=== PATIENT | male | born 1960 | race Caucasian/White ===

== ENCOUNTER → 2016-12-23 | Day surgery (SDC) | payer BC ==
[~2016-12-23] VITALS: Ht 182.9 cm; Wt 125.0 kg
[2016-12-23] VITALS (9 sets, daily range): BP systolic 133–176; BP diastolic 88–145; PULSE 82–128; TEMP 36.5; O2SAT 96–98; Ht 182.9 cm; Wt 125.0 kg
[~2016-12-23] MED LIST: ALLO300T2 PO; AMLO-110 PO; FENTANYL CITRATE INJ 50 MCG/1 ML 2 ML VIAL ONE; GLYCOPYRROLATE INJ 0.2 MG/ML VIAL ONE; METO25TA3 PO; MIDAZOLAM HCL 1 MG/ML 2ML VIAL ONE; WARF5TAB7 PO
--- NOTE | 2016-12-23 08:09 | Procedure Note ---
Pre-Mod Sedation Assessment General Date of Moderate Sedation: Dec 23, 2016. Vital Signs: Vital Signs Past 12 Hours Date Time Temp Pulse Resp B/P Pulse Ox O2 Delivery O2 Flow Rate FiO2 12/23/16 07:24 36.5 99 16 168/110 98 Room Air Review Cardiovascular: no JVD, no murmur, normal peripheral pulses, + tachycardia, + irregularly irregular Abdomen: normal bowel sounds, non tender, soft, no organomegaly, no pulsatile mass Lungs: chest non-tender, lungs clear, normal breath sounds, no respiratory distress, no accessory muscle use Airway Class: II Pre-Sedation Airway Assessment Oral Cavity: Dentures Short Thick Neck: No Hx of Sleep Apnea: No Smoking Status: Never Smoker Notes The planned sedation has been discussed with the patient and consent obtained. I have identified the patient, determined the appropriateness of sedation and have assessed the patient immediately prior to the procedure. All medicine(s) and interventions are by my order.
--- NOTE | 2016-12-23 08:09 | History & Physical Bridge Note ---
H&P Re-Evaluation Bridge Note: I have examined the patient, reviewed the History & Physical and in the interval since the performance of the History & Physical I have noted the following changes of clinical significance: No changes noted
--- NOTE | 2016-12-23 08:41 | Procedure Note ---
Post-Mod Sedation Assessment General Date of Moderate Sedation Dec 23, 2016. Vital Signs: Vital Signs Past 12 Hours Date Time Temp Pulse Resp B/P Pulse Ox O2 Delivery O2 Flow Rate FiO2 12/23/16 08:32 90 16 133/99 98 Nasal Cannula 4 12/23/16 08:30 120 16 164/103 98 Nasal Cannula 4 12/23/16 08:25 128 16 144/95 98 Nasal Cannula 4 12/23/16 08:20 118 16 144/95 98 Nasal Cannula 4 12/23/16 08:19 118 16 176/145 98 Nasal Cannula 4 12/23/16 08:18 118 16 176/145 96 Nasal Cannula 4 12/23/16 08:15 121 16 176/145 96 Nasal Cannula 4 12/23/16 07:24 36.5 99 16 168/110 98 Room Air Review - Discharge Criteria Vital Signs Stable: Yes Alert/Oriented/Conversant: Yes Returned to Baseline Mental St: Yes Nausea Absent/Minimal: Yes Pain/Discomfort/Absent/Minimal: Yes Normal/Baseline Respirations: Yes Active Bleeding?: No Pt Received D/C Instructions: Yes Prescriptions Given: None
--- NOTE | 2016-12-23 08:42 | [facility] Post Operative Brief Note ---
Immediate Operative Summary Operative Date Dec 23, 2016. Pre-Operative Diagnosis afib with rvr Post-Operative Diagnosis PAF Procedure(s) Performed ART/Cardioversion Surgeon David Consignee Surgeon(s) Casey HALL Estimated Blood Loss none Findings no thrombus successful conversion to sinus Specimens none Anesthesia Versed 5mg, Fentanyl 125mg Complication(s) None Disposition pharmacy laboratory technician
--- NOTE | 2016-12-23 08:45 | Procedure Note ---
Procedure Note Date of Service Dec 23, 2016. Procedure Note Informed consent obtained pt prepped with robinol and lidocaine spray conscious/moderate sedation with versed 5mg, fentanyl 125mg ART showed no thrombus in a well visualized appendage good velocities probe removed pt repositioned, no further sedation required 300J of DC energy delivered successful cardioversion to sinus EKG confirmed results discussed with patient and restrictions reviewed recover in laboratory monitor d/c to home per protocol plan; cont same meds my office will call to arrange follow up in 1 month
--- NOTE | 2016-12-23 08:54 | Discharge Instructions ---
Discharge Instructions Procedure Procedure Date: Dec 23, 2016. Reason for Visit: *No Anesthesia-David To Do*. Discharge Discharge Date: Dec 23, 2016. Discharge Diagnosis: Paroxysmal atrial fibrillation Last Recorded Wt (Kilograms): 125 Anesthesia Post Anesthesia Instructions: If you have had General Anesthesia or IV Sedation: * Do not drive today. * Resume driving when surgeon permits. * Do not make important decisions or sign legal documents today. * Call surgeon for: 1. Temperature elevations greater than 101 degrees F. 2. Uncontrollable pain. 3. Excessive bleeding. 4. Persistent nausea and vomiting. 5. Medication intolerance (nausea, vomiting or rash). * For nausea and vomiting use only clear liquids such as: tea, soda, bouillon until nausea subsides, then gradually increase diet as tolerated. * If you have any concerns or questions, call your surgeon's office. If physician is unavailable and it is an emergency, call 911 or go to the nearest emergency room. Instructions Activity Recommendations: resume regular activity (on 12/24/16), driving or machine use limit (for 24 hours) Recommended Home Diet: resume previous diet Follow Up Follow-up with: Dr. Hernandez's office will call to schedule appointment in 1-2 weeks Lee Ann Shahid Recommendations: Call your doctor if: * Temperature above 101 degrees * Pain not relieved by pain medicine ordered * There is increased drainage or redness from any incision * You have any unanswered questions or concerns. Your Doctors Instructions noted above were prepared by provider Yrn Hernandez. Patient Signature Section: Patient Instructions Signature Page Bruce Jean Patient (or Guardian) Signature/Date: I have read and understand the instructions given to me by my caregivers. Caregiver/RN/Doctor Signature/Date: The above-named patient and/or guardian has received patient instructions on this date. + Original Patient Signature Page (only) stays with chart. Please make copy for patient.
--- NOTE | 2017-01-09 11:01 | TEE ---
*NOTICE TO RECEIVING [employer]Y This information is strictly Confidential and protected under [place] law. [place] law prohibits you from making any further disclosure of this information unless further disclosure is expressly permitted by the written consent of the person to whom it pertains or is authorized by law. A general authorization for the release of medical or other information is not sufficient for this purpose. Hospital accepts no responsibility if the information is made available to any other person, INCLUDING THE PATIENT. Interpretation Summary * Name: DANITZA ESCOTO Study Date: 12/23/2016 07:18 AM BP: 129/88 mmHg * Patient Location: [facility] area HR: 91 * : 1960 (M/d/yyyy) Gender: Male Height: 72 in * Age: 56 yrs Ethnicity: [place] Weight: 280 lb * Ordering Physician: Yrn Hernandez DO * Referring Physician: Yrn Hernandez DO * Performed By: Elli Portillo RCS * * Reason For Study: A-FIB, Pre-C/V, Eval for CSOE * BSA: 2.5 m2 * -- Conclusions -- * The left atrium is severely dilated. * No thrombus is detected in the left atrial appendage. * Mild mitral regurgitation. Procedure Details * ART Probe #1 utilized for procedure. * The study was performed in Cardiac Catheterization Lab. * Time out was conducted by the physician, nurse, and safety technician with positive identification of patient and procedure. * Informed consent for Transesophageal Echocardiogram was obtained prior to the procedure. * An intravenous line was placed. A topical anesthetic agent was used for oropharangeal anesthesia. A bite block was inserted. * The patient's vital signs, including blood pressure, heart rate, pulse oximetry and cardiac rhythm were monitored throughout the procedure . * Fentanyl 125 mcg was administered for procedural sedation. * Robinul .4 mg administered for to reduce oral secretions. * Midazolam 5 mg administered for sedation. * A multifrequency, multiplane transesopheageal echocardiographic endoscope was inserted and manipulated in the standard fashion to achieve multiplane views. * The transesophageal probe was passed without difficulty. * The patient tolerated the procedure well without evidence of orophangeal or esophageal trauma. * Probe insertion time was 0815 Probe removal time was 0830 * A 2D transesophageal echocardiogram was performed. * A 2D transesophageal echocardiogram with color flow Doppler was performed. * A 2D transesophageal echocardiogram with Doppler and color flow Doppler was performed. Left Ventricle * The left ventricle is grossly normal size. * Left ventricular systolic function is normal. Atria * The left atrium is severely dilated. * No thrombus is detected in the left atrial appendage. * Right atrial size is normal. * The interatrial septum is intact with no evidence for an atrial septal defect. Mitral Valve * The mitral valve anatomy is normal. * There is no evidence of mitral valve prolapse. * There is no mitral valve stenosis. * There is mild mitral regurgitation. Tricuspid Valve * The tricuspid valve is normal in structure and function. Aortic Valve * The aortic valve is normal in structure and function. Pulmonic Valve * The pulmonary valve is not well seen, but the Doppler examination is normal without significant regurgitation or stenosis. Great Vessels * The aortic root and proximal ascending aorta are normal sized. Pericardium * There is no pericardial effusion.
== END | disposition home or self-care (01) ==
LOC: C.CATH 06:37
PROVIDERS: ATTEND Internal Medicine Cardiovascular Disease
DX: I48.0 Paroxysmal atrial fibrillation (principal); E78.5 Hyperlipidemia, unspecified; M10.9 Gout, unspecified; Z79.01 Long term (current) use of anticoagulants

== ENCOUNTER 2023-02-10 15:25 | Observation (INO) ==
[2023-02-10] MEDS ORDERED: PROCHLORPERAZINE MALEATE 5 MG TAB PO ONE (15:50)
[2023-02-10] MEDS ORDERED: ONDANSETRON INJ 2 MG/ML 2 ML VIAL IV STA (15:56)
[2023-02-10] MEDS ORDERED: fentaNYL citrate PF 100 MCG/2 ML VIAL IV STA (15:56)
[2023-02-10] MEDS ORDERED: PROCHLORPERAZINE 1 ML IV ONE (15:56)
[2023-02-10] MEDS ORDERED: IBUPROFEN 800 MG TAB PO STA (16:02)
--- NOTE | 2023-02-10 16:24 | XRay Report ---
SINGLE VIEW CHEST CLINICAL HISTORY: Generalized abdominal pain. FINDINGS: An AP, portable, upright chest radiograph is obtained. No prior studies are available for c omparison at the time of dictation. The examination is degraded by portable technique and apical lord otic positioning. The heart is enlarged noting atherosclerotic calcification of the thoracic aorta. T he pulmonary vasculature is noncongested. Scarring/atelectasis is noted at the left lung base. No air space consolidation or large pleural effusion is identified. No pneumothorax is seen. The skeletal st ructures are osteopenic. The bony thorax is grossly intact. IMPRESSION: Cardiomegaly with no acute cardiopulmonary abnormality identified. ACT 112: Negative or not required by law. Electronically signed by: Rg Trejo M.D. 02/10/2023 4:22 PM
[2023-02-10 16:33] LABS: Albumin Globulin Ratio 1.9 (0.9-2); Albumin Level 4.1 gm/dl (3.4-5.0); Bilirubin,Total 0.7 mg/dl (0.2-1.0); Calcium 8.4 mg/dl (8.6-10.3); Est GFR (African American) 92.4 ml/min; Est GFR (Non-African American) 79.7 ml/min; Globulin 2.2 gm/dl (2.5-4.0); Magnesium 1.7 mg/dl (1.7-2.4); Potassium 4.7 mmol/L (3.5-5.1); Total Protein 6.3 gm/dl (6.0-8.3)
[2023-02-10 16:42] LABS: INR 2.5 (0.9-1.1); Partial Thromboplastin Ratio 1.3; Partial Thromboplastin Time 34.7 Seconds (21.0-31.0); Prothrombin Time 25.6 Seconds (9.0-12.0)
[2023-02-10 16:46] LABS: Basophils # (auto) 0.03 K/uL (0-0.2); Basophils % (auto) 0.5 %; Eosinophils # (auto) 0.06 K/uL (0-0.50); Hematocrit (blood only) 38.9 % (42.0-52.0); Hemoglobin 13.7 g/dl (14.0-18.0); Immature Granulocytes # (auto) 0.02 K/uL (0.01-0.20); Immature Granulocytes % (auto) 0.3 %; Lymphocytes # (auto) 0.99 K/uL (1.2-3.4); Lymphocytes % (auto) 17.3 %; Mean Corpuscular Hemoglobin 32.6 pg (25.0-34.0); Mean Corpuscular Hgb Conc 35.2 g/dL (32.0-36.0); Mean Corpuscular Volume 92.6 fL (80.0-100.0); Mean Platelet Volume 12.1 fL (9.4-12.4); Monocytes # (auto) 0.42 K/uL (0.11-0.59); Monocytes % (auto) 7.3 %; Neutrophils % (auto) 73.6 %; Platelet Count 94 K/uL (130-400); Platelet Estimate Decreased (Normal); RDW Coefficient of Variation 12.7 % (11.5-14.5); RDW Standard Deviation 43.2 fL (36.4-46.3); White Blood Count 5.72 K/ul (4.8-10.8)
--- NOTE | 2023-02-10 16:54 | Emergency Department Note ---
Impression & Plan Dizziness, Afib, Warfarin anticoagulation, Hx of right BKA, Abdominal pain, epigastric, Nausea ED Provider Note Provider: Elijah Gutierrez MD DATE OF SERVICE: 02/10/2023 CHIEF COMPLAINT: Nausea, abdominal pain, dizziness HISTORY OF PRESENT ILLNESS: Patient is a 62-year-old gentleman history of atrial fibrillation on amiodarone and warfarin as well as a distant prior traumatic right lower extremity amputation presenting here today with sudden onset around 1 PM with upper abdominal discomfort and some shortness of breath, nausea, and lightheadedness. No trauma reported recently. States his INR was therapeutic earlier today. Received a milligrams of Zofran and some IV fluids in route. Still feeling nauseous. Denies any diarrhea or recent sick contact. Denies any trauma. Pain in the upper abdomen. Has had some long-term chronic swelling of the left lower leg. PAST MEDICAL HISTORY: As noted above MEDICATIONS: Reviewed home medications SOCIAL HISTORY: , non smoker PHYSICAL EXAM: GENERAL: alert and oriented in no acute distress on stretcher Head: normocephalic and atraumatic EYES: No injection, discharge or icterus. NECK: Trachea midline. Supple. ENT: Mucous membranes pink and moist. LUNGS: Airway patent. No retractions. Breath sounds clear with good air entry bilaterally. HEART: Regular rate and rhythm. No chest wall tenderness ABDOMEN: Some mild upper abdominal tenderness. No lower abdominal tenderness. SKIN: Acyanotic, warm, dry, without rashes EXTREMITIES: Right BKA. Mild 1+ swelling of the left lower extremity. Not severely erythematous. NEUROLOGICAL: No focal deficits. No aphasia. No facial droop or slurred speech. EK bpm atrial fibrillation. No clear acute ST segment elevation or depression with a QTc of 481. No PVC noted CONTINUOUS CARDIAC MONITORING: was ordered and showed a heart rate of 70s-80s bpm in atrial fibrillation Patient's laboratory studies and imaging reviewed. Differential includes cardiac disease, pneumonia, infections, diverticulitis, UTI, obstruction, mesenteric ischemia, aortic pathology, inflammatory bowel disease, renal colic, PUD, pancreatitis, biliary pathology, hernia, volvulus, as well as other pathologies. IMPRESSION/MEDICAL DECISION MAKING: Patient declines any pain medicine. Sudden onset of upper abdominal discomfort. Some diaphoresis shortness of breath may be some slight radiation of the chest earlier. No trauma reported. No sick contact. Well-appearing here. In rate controlled A-fib. INR therapeutic. EKG without acute ischemic findings obvious. No STEMI. Troponin sent. Dizziness and diaphoresis with his multiple comorbidities are concerning. Seen with the resident physician. Blood work returns without significant anemia or leukocytosis. Some thrombocytopenia is noted. No baseline labs in the [facility] system for comparison. No troponin elevation here. Slight AST ALT elevation. No lipase elevation. Negative COVID. Doubt pancreatitis. Does not seem consistent with acute hepatitis. Bilirubin not elevated. Chest x-ray and CT abdomen pelvis obtained to look for etiology. Not hypoxic here. Chest x-ray per radiology without significant findings beyond cardiomegaly. CT abdomen pelvis per radiology without significant acute intra-abdominal findings although they note extensive cardiac calcifications. Question given his cardiac history this f inding, as well as diaphoresis shortness of breath and epigastric discomfort he is having this could be a mimic for ACS. No STEMI on imaging. Discussed with patient findings. Family provides additional history has been a little bit dizzy. Attempted to ambulate the patient he is very unsteady his feet even just standing at bedside. Abdominal pain and nausea are somewhat less. Low suspicion for intra-abdominal pathology given the testing and imaging as well as now findings more of unsteadiness and dizziness. CT of the head completed given his anticoagulation use exclude acute intracranial bleed. Per radiology without evidence of this. Question some component of a posterior circulation issue. Is already anticoagulated. Discussed with the hospitalist given his significant symptoms. Does not seem orthostatic. DIAGNOSIS: Dizziness, epigastric pain, nausea, atrial fibrillation, long-term anticoagulation DISPOSITION: Hospitalist will evaluate Patient was agreeable with this plan. Past Med/Surg History Medical History Afib HTN (hypertension) Idiopathic urticaria Warfarin anticoagulation Surgical History Hx of right BKA Social History Smoking Status: Never smoker Feels Safe at Home: Yes Home Meds Home Medications Medication Instructions Recorded Confirmed ALLOPURINOL (ZYLOPRIM) 300 mg PO DAILY #0 tabs 12/23/16 02/10/23 amiodarone 200 mg tablet (Pacerone) 200 mg PO DAILY 02/10/23 02/10/23 atorvastatin 40 mg tablet 40 mg PO DAILY 02/10/23 02/10/23 losartan 50 mg tablet (Cozaar) 50 mg PO DAILY 02/10/23 02/10/23 prednisone 5 mg tablet 5 mg PO DAILY 02/10/23 02/10/23 tamsulosin 0.4 mg capsule (Flomax) 0.4 mg PO DAILY 02/10/23 02/10/23 warfarin 7.5 mg tablet (Jantoven) 5 mg PO DAILY 02/10/23 02/10/23 Results & Data (ED) Vital Signs Vital Signs - 24 hr 02/10/23 15:36 02/10/23 15:44 02/10/23 15:46 Temperature 36.9 C Temperature Source Oral Pulse Rate 68 74 Pulse Rate [Apical] Pulse Rhythm Irregular Respiratory Rate 20 Respiratory Effort / Characteristics Non-Labored Respiratory Depth Normal Blood Pressure 161/121 H Blood Pressure [Right Arm] Blood Pressure Mean 134 Blood Pressure Mean [Right Arm] Blood Pressure Position Lying Pulse Oximetry 95 92 Oxygen Delivery Method Room Air Room Air Sepsis Recent Fever Within 48 Hours No Sepsis New/Unexplained Change in Mental Status Yes Sepsis Action Taken by Nursing No Action Required 02/10/23 16:08 Temperature Temperature Source Pulse Rate Pulse Rate [Apical] 75 Pulse Rhythm Respiratory Rate 20 Respiratory Effort / Characteristics Non-Labored Respiratory Depth Normal Blood Pressure Blood Pressure [Right Arm] 172/108 H Blood Pressure Mean Blood Pressure Mean [Right Arm] 129 Blood Pressure Position Pulse Oximetry 90 Oxygen Delivery Method Room Air Sepsis Recent Fever Within 48 Hours Sepsis New/Unexplained Change in Mental Status Sepsis Action Taken by Nursing Laboratory Data 02/10/23 15:36 02/10/23 15:36 Lab Results 02/10/23 02/10/23 02/10/23 Range/Units 15:36 15:36 15:36 WBC 5.72 (4.8-10.8) K/ul RBC 4.20 L (4.70-6.10) M/uL Hgb 13.7 L (14.0-18.0) g/dl Hct 38.9 L (42.0-52.0) % MCV 92.6 (80.0-100.0) fL MCH 32.6 (25.0-34.0) pg MCHC 35.2 (32.0-36.0) g/dL RDW Std Deviation 43.2 (36.4-46.3) fL RDW Coeff of Mars 12.7 (11.5-14.5) % Plt Count 94 L (130-400) K/uL MPV 12.1 (9.4-12.4) fL Immature Gran % (Auto) 0.3 % Neut % (Auto) 73.6 % Lymph % (Auto) 17.3 % Wilkin % (Auto) 7.3 % Eos % (Auto) 1.0 % Baso % (Auto) 0.5 % Neut # (Auto) 4.20 (1.40-6.50) K/uL Lymph # (Auto) 0.99 L (1.2-3.4) K/uL Wilkin # (Auto) 0.42 (0.11-0.59) K/uL Eos # (Auto) 0.06 (0-0.50) K/uL Baso # (Auto) 0.03 (0-0.2) K/uL Immature Gran # (Auto) 0.02 (0.01-0.20) K/uL Platelet Estimate Decreased L (Normal) PT 25.6 H (9.0-12.0) Seconds INR 2.5 H (0.9-1.1) APTT 34.7 H (21.0-31.0) Seconds PTT Ratio 1.3 Sodium 139 (136-145) mmol/L Potassium 4.7 (3.5-5.1) mmol/L Chloride 109 H (98-107) mmol/L Carbon Dioxide 23 (21-32) mmol/L Anion Gap 7 (3-11) BUN 24 H (6-23) mg/dl Creatinine 1.00 (0.6-1.4) mg/dl Est Cr Clr Drug Dosing 108.0 ml/min Est GFR ( Amer) 92.4 ml/min Est GFR (Non-Af Amer) 79.7 ml/min BUN/Creatinine Ratio 24.0 H (10-20) Glucose 156 H (70-99(Fasting)) mg/dl Calcium 8.4 L (8.6-10.3) mg/dl Magnesium 1.7 (1.7-2.4) mg/dl Total Bilirubin 0.7 (0.2-1.0) mg/dl AST 60 H (13-39) U/L ALT 62 H (7-52) U/L Alkaline Phosphatase 45 (34-104) U/L Troponin I High Sens 10.0 (0-20) pg/ml Total Protein 6.3 (6.0-8.3) gm/dl Albumin 4.1 (3.4-5.0) gm/dl Globulin 2.2 L (2.5-4.0) gm/dl Albumin/Globulin Ratio 1.9 (0.9-2) Lipase 27 (11-82) U/L Urine Color Urine Appearance (Clear) Urine pH (4.5-7.5) Ur Specific Sidney (1.000-1.030) Urine Protein (Negative) Urine Glucose (UA) (Negative) Urine Ketones (Negative) Urine Blood (Negative) Urine Nitrite (Negative) Urine Bilirubin (Negative) Urine Urobilinogen (Negative) Ur Leukocyte Esterase (Negative) Urine WBC (Auto) (0-5) /hpf Urine RBC (Auto) (0-4) /hpf U Hyaline Cast (Auto) (0-5) /lpf U Epithel Cells (Auto) (0-5) /lpf Urine Bacteria (Auto) (Negative) SARS-CoV-2, RNA, NAAT (NEGATIVE) 02/10/23 02/10/23 Range/Units 15:49 19:13 WBC (4.8-10.8) K/ul RBC (4.70-6.10) M/uL Hgb (14.0-18.0) g/dl Hct (42.0-52.0) % MCV (80.0-100.0) fL MCH (25.0-34.0) pg MCHC (32.0-36.0) g/dL RDW Std Deviation (36.4-46.3) fL RDW Coeff of Mars (11.5-14.5) % Plt Count (130-400) K/uL MPV (9.4-12.4) fL Immature Gran % (Auto) % Neut % (Auto) % Lymph % (Auto) % Wilkin % (Auto) % Eos % (Auto) % Baso % (Auto) % Neut # (Auto) (1.40-6.50) K/uL Lymph # (Auto) (1.2-3.4) K/uL Wilkin # (Auto) (0.11-0.59) K/uL Eos # (Auto) (0-0.50) K/uL Baso # (Auto) (0-0.2) K/uL Immature Gran # (Auto) (0.01-0.20) K/uL Platelet Estimate (Normal) PT (9.0-12.0) Seconds INR (0.9-1.1) APTT (21.0-31.0) Seconds PTT Ratio Sodium (136-145) mmol/L Potassium (3.5-5.1) mmol/L Chloride (98-107) mmol/L Carbon Dioxide (21-32) mmol/L Anion Gap (3-11) BUN (6-23) mg/dl Creatinine (0.6-1.4) mg/dl Est Cr Clr Drug Dosing ml/min Est GFR ( Amer) ml/min Est GFR (Non-Af Amer) ml/min BUN/Creatinine Ratio (10-20) Glucose (70-99(Fasting)) mg/dl Calcium (8.6-10.3) mg/dl Magnesium (1.7-2.4) mg/dl Total Bilirubin (0.2-1.0) mg/dl AST (13-39) U/L ALT (7-52) U/L Alkaline Phosphatase (34-104) U/L Troponin I High Sens (0-20) pg/ml Total Protein (6.0-8.3) gm/dl Albumin (3.4-5.0) gm/dl Globulin (2.5-4.0) gm/dl Albumin/Globulin Ratio (0.9-2) Lipase (11-82) U/L Urine Color Yellow Urine Appearance Clear (Clear) Urine pH 5.5 (4.5-7.5) Ur Specific Sidney > 1.045 H (1.000-1.030) Urine Protein Trace H (Negative) Urine Glucose (UA) Negative (Negative) Urine Ketones Negative (Negative) Urine Blood Negative (Negative) Urine Nitrite Negative (Negative) Urine Bilirubin Negative (Negative) Urine Urobilinogen Negative (Negative) Ur Leukocyte Esterase Negative (Negative) Urine WBC (Auto) 1-5 (0-5) /hpf Urine RBC (Auto) 0-4 (0-4) /hpf U Hyaline Cast (Auto) 1-5 (0-5) /lpf U Epithel Cells (Auto) 5-10 H (0-5) /lpf Urine Bacteria (Auto) Negative (Negative) SARS-CoV-2, RNA, NAAT NEGATIVE (NEGATIVE) Administered Medications Discontinued Medications Fentanyl Citrate (Fentanyl Citrate Pf 100 Mcg/2 Ml Vial) 50 mcg IV NOW STA Stop: 02/10/23 15:57 Last Admin: 02/10/23 16:07 Dose: Not Given Documented By: PARADISE Prochlorperazine (Compazine) 1 mls @ 1 mls/min IV ONE ONE Stop: 02/10/23 15:57 Last Admin: 02/10/23 16:07 Dose: 1 mls/min Documented By: PARADISE Sodium Chloride (Nss 1000ml) 500 mls @ 999 mls/hr IV .Q31M ONE Stop: 02/10/23 18:28 Last Infusion: 02/10/23 18:48 Dose: 0 mls/hr Documented By: Admin: 02/10/23 18:08 Dose: 999 mls/hr Documented By: JALEN Ibuprofen (Ibuprofen 800 Mg Tab) 800 mg PO NOW STA Stop: 02/10/23 16:03 Last Admin: 02/10/23 16:07 Dose: 800 mg Documented By: PARADISE Ioversol (Optiray 350 100ml) 76 ml IV ONCE ONE Stop: 02/10/23 17:01 Last Admin: 02/10/23 17:00 Dose: 76 ml Documented By: DENI Meclizine HCl (Meclizine Hcl 25 Mg Tab) 25 mg PO NOW STA Stop: 02/10/23 17:59 Last Admin: 02/10/23 18:08 Dose: 25 mg Documented By: JALEN Prochlorperazine (Prochlorperazine Maleate 5 Mg Tab) 5 mg PO NOW ONE Stop: 02/10/23 15:51 Last Admin: 02/10/23 16:08 Dose: Not Given Documented By: PARADISE Imaging Data Radiologist's Impression: Abdomen/Pelvis CT 02/10/23 15:55 CT OF THE ABDOMEN AND PELVIS WITH CONTRAST CLINICAL HISTORY: Abdominal pain, nausea and vomiting. COMPARISON STUDY: None. TECHNIQUE: Following IV administration of 76 mL of Optiray, axial images of the abdomen and pelvis were obtained from the lung bases to the proximal femurs. Images were reviewed in the axial, sagittal, and coronal planes. IV contrast was administered without complication. Automated exposure control was utilized for the study. A dose lowering technique was utilized adhering to the principles of ALARA. CT DOSE: 1781.98 mGy.cm FINDINGS: No pneumatosis, free air or portal venous gas is present. There is mild cardiomegaly. Extensive coronary artery calcification is present. There is hepatic steatosis. No biliary or pancreatic ductal dilatation is present. There is no peripancreatic or pericholecystic stranding. This exam is mildly compromised by motion artifact. Spleen, adrenal glands and right kidney are unremarkable. There is no hydronephrosis. A 2.1 cm lesion within the midpole of the left kidney measures just above water attenuation. IVC filter is in place. There is no evidence for a bowel obstruction. There is sigmoid diverticulosis without evidence for acute diverticulitis. Bilateral fat-containing inguinal hernias are present. There is no fluid collection to suggest an abscess. There is no lymphadenopathy. No acute fractures within the visualized skeletal str uctures are present. Internal fixation hardware within the left femur is partially imaged. Appendix is normal. Moderate aortoiliac atherosclerotic plaque. IMPRESSION: 1. No acute process within the abdomen or pelvis. 2. No bowel obstruction. No bowel wall thickening. Sigmoid diverticulosis w ithout evidence for acute diverticulitis. 3. Hepatic steatosis. 4. Extensive coronary artery calcification. Mild cardiomegaly. ACT 112: Negative or not required by law. Electronically signed by: Gt Almendarez M.D. 02/10/2023 5:20 PM Chest X-Ray 02/10/23 15:55 SINGLE VIEW CHEST CLINICAL HISTORY: Generalized abdominal pain. FINDINGS: An AP, portable, upright chest radiograph is obtained. No prior studies are available for comparison at the time of dictation. The examination is degraded by portable technique and apical lordotic positioning. The heart is enlarged noting atherosclerotic calcification of the thoracic aorta. The pul monary vasculature is noncongested. Scarring/atelectasis is noted at the left lung base. No airspace consolidation or large pleural effusion is identified. No pneumothorax is seen. The skeletal structures are osteopenic. The bony thorax is grossly intact. IMPRESSION: Cardiomegaly with no acute cardiopulmonary abnormality identified. ACT 112: Negative or not required by law. Electronically signed by: Rg Trejo M.D. 02/10/2023 4:[address] 04/14/23 17:[address] DOSE: 691.05 mGy.cm HISTORY: dizzy, nausea TECHNIQUE: Multiaxial CT images of the head were performed without the use of intravenous contrast. Automated exposure control was utilized for this study. A dose lowering technique was utilized adhering to the principles of ALARA. Comparison: None. Findings: The paranasal sinuses and mastoid air cells are clear. The calvarium and skull base are intact. The ventricles and sulci are within normal limits. There is no mass, hematoma, midline shift, or acute infarct. Impression: No acute intracranial abnormality. ACT 112: Negative or not required by law. Electronically signed by: Neeraj Bhat M.D. 02/10/2023 7:04 PM Discharge Plan Visit Data Chief Complaint: Abdominal Pain ED Provider: Elijah Gutierrez ED Midlevel Provider: Demetrio Miller Discharge Problem: Dizziness, Afib, Warfarin anticoagulation, Hx of right BKA, Abdominal pain, epigastric, Nausea Patient Disposition: Being Evaluated by Hospitalist Forms Stand Alone Forms: My [facility] Prescriptions Prescriptions: No Action ALLOPURINOL (ZYLOPRIM) 300 MG tablet 300 mg PO DAILY Qty: 0 losartan [Cozaar] 50 mg tablet 50 mg PO DAILY atorvastatin 40 mg Tablet 40 mg PO DAILY amiodarone [Pacerone] 200 mg tablet 200 mg PO DAILY warfarin [Jantoven] 7.5 mg tablet 5 mg PO DAILY prednisone 5 mg tablet 5 mg PO DAILY tamsulosin [Flomax] 0.4 mg capsule 0.4 mg PO DAILY Referrals Referrals: Lew Oleary MD [Primary Care Provider] -
[2023-02-10] MEDS ORDERED: OPTIRAY 350 100ml IV ONE (17:00)
--- NOTE | 2023-02-10 17:21 | CT Scan Report ---
CT OF THE ABDOMEN AND PELVIS WITH CONTRAST CLINICAL HISTORY: Abdominal pain, nausea and vomiting. COMPARISON STUDY: None. TECHNIQUE: Following IV administration of 76 mL of Optiray, axial images of the abdomen and pelvis we re obtained from the lung bases to the proximal femurs. Images were reviewed in the axial, sagittal, and coronal planes. IV contrast was administered without complication. Automated exposure control wa s utilized for the study. A dose lowering technique was utilized adhering to the principles of ALARA . CT DOSE: 1781.98 mGy.cm FINDINGS: No pneumatosis, free air or portal venous gas is present. There is mild cardiomegaly. Exten sive coronary artery calcification is present. There is hepatic steatosis. No biliary or pancreatic d uctal dilatation is present. There is no peripancreatic or pericholecystic stranding. This exam is mi ldly compromised by motion artifact. Spleen, adrenal glands and right kidney are unremarkable. There is no hydronephrosis. A 2.1 cm lesion within the midpole of the left kidney measures just above water attenuation. IVC filter is in place. There is no evidence for a bowel obstruction. There is sigmoid diverticulosis without evidence for acute diverticulitis. Bilateral fat-containing inguinal hernias a re present. There is no fluid collection to suggest an abscess. There is no lymphadenopathy. No acute fractures within the visualized skeletal structures are present. Internal fixation hardware within t he left femur is partially imaged. Appendix is normal. Moderate aortoiliac atherosclerotic plaque. IMPRESSION: 1. No acute process within the abdomen or pelvis. 2. No bowel obstruction. No bowel wall thickening. Sigmoid diverticulosis without evidence for acute diverticulitis. 3. Hepatic steatosis. 4. Extensive coronary artery calcification. Mild cardiomegaly. ACT 112: Negative or not required by law. Electronically signed by: Gt Almendarez M.D. 02/10/2023 5:20 PM
[2023-02-10] MEDS ORDERED: SODIUM CHLORIDE 0.9% 1000ML 500 ML IV ONE (17:58)
[2023-02-10] MEDS ORDERED: MECLIZINE HCL 25 MG TAB PO STA (17:58)
--- NOTE | 2023-02-10 18:07 | History & Physical Report ---
Date of Service February 10, 2023 Assessment & Plan (1) Dizziness: Plan: Dizziness Patient with a single episode of dizziness with some chest pain and shortness of breath. Did not pass out but was associated with room spinning initially. On reassessment and in the ER no longer has room spinning or lightheadedness, but notes his balance is very poor and off when he tries to stand on his left leg which is very abnormal for him. Also feels his coordination is off. Patient is high risk for falls and injury due to history of right BKA and on anticoagulation. He is not orthostatic at time of assessment. No rotary nystagmus or vertigo elicited on Ranger-Hallpike testing Given continued focal difficulty with coordination and balance on left leg, will evaluate for posterior stroke with MRI, CT. No other focal deficits on exam. Patient's blood pressure is 160 systolic initially, slightly increased during exam to 170s. DDx does include symptomatic hypertension, is only on losartan PASTRY SOUS CHEF. Pending work-up above we will allow for permissive hypertension, if no stroke appreciated we will treat with adjunct HCTZ and acutely to goal of less than 180. Has not had orthostatic drop with blood pressure Dizziness appears independent of A-fib, no RVR is appreciated Continue aspirin 81 mg daily Follow-up telemetry (2) Afib: Plan: Continue amiodarone, warfarin INR therapeutic, continue INR daily (3) Warfarin anticoagulation: Plan: As noted (4) Hx of right BKA: Plan: As noted, traumatic, denies history of vascular disease (5) HTN (hypertension): Plan: Continue losartan, adjunct as noted (6) Chest pain: Plan: Single episode of chest pain with shortness of breath which resolved. Patient denies prior shortness of breath, and no anginal symptoms with exertion leading up to this Extensive coronary calcifications noted on CT Initial troponin negative, no territorial signs of ischemia on EKG Will repeat troponin, no clinical signs of ACS at time of bedside assessment (7) Transaminitis: Plan: BMI 40, hepatic steatosis noted - Hx HLD Lipid panel, A1c, hepatic panel pending (8) Idiopathic urticaria: Plan: Chronically on prednisone 5 mg every other day. Reports history of idiopathic urticaria which is continually recurred since his traumatic accident many years ago. Has attempted to down titrate prednisone, has not been able to get below e very other day 5 mg dosing Patient reports he had some scratch testing, otherwise has not had allergy follow-up Can follow-up with Dr. Orourke as outpatient on discharge. No urticaria noted on admission Plan DVT prophylaxis: Anticoagulated Diet: Heart healthy Disposition: Medical telemetry for posterior stroke eval CODE STATUS: Full code History of Present Illness Primary Care Provider: Lew Oleary MD Bruce is a 62-year-old male with a past medical history of A-fib on amiodarone and warfarin, distal traumatic right lower extremity amputation who recently transition care to [facility] outpatient primary care who presents to the ER with abdominal pain, shortness of breath, lightheadedness, and dizziness. His warfarin has been therapeutic. His chest x-ray is clear, CT does not show any acute process of the abdomen or pelvis, no evidence of bowel obstruction, and diverticulosis without diverticulitis. Coronary calcification and hepatic steatosis is noted. Hemoglobin 13.7, INR is therapeutic at 2.5, creatinine is with normal baseline at 1.0 on admission, he has a minimal transaminitis and normal troponin. COVID is negative. Bruce is seen at the bedside. He reports that this afternoon he had an episode where he was extremely dizzy, had some chest pain and shortness of breath which radiated down into his abdomen and he felt slightly sweaty. At that time he notes that the room was spinning, but he did not feel like he was going to pass out. He had an episode of nonbloody nonbilious emesis due to nausea after symptoms started. Following this and in the ER he felt improved with some symptomatic care, meclizine, nausea medicines however when he attempted to stand on 1 leg (he has a history of traumatic right lower amputation) he noted that his balance was extremely poor and he felt like his balance was significantly different even without any room spinning or lightheadedness. He reports the chest pain and shortness of breath lasted about 10 minutes and then resolved. He has not had a prior stroke or heart attack. He was not aware that he has extensive coronary calcifications on CT. He has no history of diabetes to his knowledge. He drinks alcohol around twice a week, currently goes weeks without any alcohol use no history of withdrawal. He does not use tobacco products. Denies early family history of heart attack. He does not have a headache, lightheadedness or dizziness at assessment. 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 No dysarthria. No facial asymmetry. He has been on warfarin for his A-fib which he feels has been well controlled, and he has not had any episodes of rapid heart rate. Medical History: Reviewed Medications: Reviewed Surgical History: Reviewed Family history: Reviewed Allergies: Reviewed Social History: Social alcohol use, no tobacco use Code Status: Full code Home Medications Medication Instructions Recorded Confirmed Type ALLOPURINOL (ZYLOPRIM) 300 mg PO DAILY #0 tabs 12/23/16 02/10/23 History amiodarone 200 mg tablet (Pacerone) 200 mg PO DAILY 02/10/23 02/10/23 History atorvastatin 40 mg tablet 40 mg PO DAILY 02/10/23 02/10/23 History losartan 50 mg tablet (Cozaar) 50 mg PO DAILY 02/10/23 02/10/23 History prednisone 5 mg tablet 5 mg PO DAILY 02/10/23 02/10/23 History tamsulosin 0.4 mg capsule (Flomax) 0.4 mg PO DAILY 02/10/23 02/10/23 History warfarin 7.5 mg tablet (Jantoven) 5 mg PO DAILY 02/10/23 02/10/23 History Past Med/Surg History Medical History Afib HTN (hypertension) Idiopathic urticaria Warfarin anticoagulation Surgical History Hx of right BKA Social History Smoking Status: Never smoker Feels Safe at Home: Yes Review of Systems Review of Systems: All systems reviewed & are unremarkable except as noted in HPI & below Physical Exam Physical Exam: General: A&Ox3. NAD. Cooperative. HEENT: Atraumatic, normocephalic. Pulm: CTAB A&P. -wheezes, -rales, -rhonchi. Symmetrical chest rise. No increased work of breathing. No respiratory distress. Cardiac: irir, -mrg. Radial pulses intact and symmetrical. Abdominal: Nontender, nondistended, soft. BS present. CRANIAL NERVES: II: Pupils equal and reactive, no relative afferent pupillary defect, no VF cuts III, IV, : EOM intact, no gaze preference or deviation, no nystagmus. V: normal sensation in V1, V2, and V3 segments bilaterally VII: no asymmetry, no nasolabial fold flattening VIII: normal hearing to speech IX, X: normal palatal elevation, no uvular deviation XI: 5/5 head turn and 5/5 shoulder shrug bilaterally XII: midline tongue protrusion MOTOR: RUE: 5/5 gas jockey strength, finger flexion/extension, interosseus LUE: 5/5 gas jockey strength, finger flexion/extension, interosseus RLE: S/p right BKA LLE: 5/5 to hip flexion/extension, knee flexion, ankle dorsiflexion/plantarflexion Sensation soft touch intact in hands bilaterally to soft touch, intact to soft touch in left foot. Ranger-Hallpike performed bilaterally, no rotary nystagmus or dizziness elicited. Finger-nose intact. Results & Data Results & Data Vital Signs (Past 12 Hours) Vital Signs Temp Pulse Pulse Resp BP BP Pulse Ox 02/10/23 16:08 75 20 172/108 H 90 02/10/23 15:46 92 02/10/23 15:44 74 02/10/23 15:36 36.9 C 68 20 161/121 H 95 O2 Del Method 02/10/23 16:08 Room Air 02/10/23 15:46 Room Air 02/10/23 15:44 02/10/23 15:36 Room Air PG Care Time/CCT Total # of Minutes Spent Total Time Spent with Patient: Total time spent is greater than 50% in coordination of care (as documented) at patient's floor/unit and/or counseling patient: Coding Level of Care Code 79898 INT INP/OBS CARE 2/55MIN Diagnoses Dizziness R42 Afib I48.91 Warfarin anticoagulation Z79.01 Hx of right BKA Z89.511 HTN (hypertension) I10 Chest pain R07.9 Transaminitis R74.01 Idiopathic urticaria L50.1
--- NOTE | 2023-02-10 19:06 | CT Scan Report ---
HEAD CT NONCONTRAST CT DOSE: 691.05 mGy.cm HISTORY: dizzy, nausea TECHNIQUE: Multiaxial CT images of the head were performed without the use of intravenous contrast. A utomated exposure control was utilized for this study. A dose lowering technique was utilized adheri ng to the principles of ALARA. Comparison: None. Findings: The paranasal sinuses and mastoid air cells are clear. The calvarium and skull base are int act. The ventricles and sulci are within normal limits. There is no mass, hematoma, midline shift, or acute infarct. Impression: No acute intracranial abnormality. ACT 112: Negative or not required by law. Electronically signed by: Neeraj Bhat M.D. 02/10/2023 7:04 PM
[2023-02-10 19:35] LABS: Appearance Urine Clear (Clear); Bacteria Urine Automated Negative (Negative); Bilirubin Urine Negative (Negative); Blood Urine Negative (Negative); Color Urine Yellow; Glucose Urine UA Negative (Negative); Ketones Urine Negative (Negative); Leukocyte Esterase Urine Negative (Negative); Nitrite Urine Negative (Negative); Protein Urine Trace (Negative); RBC Urine Automated 0-4 /hpf (0-4); Specific Gravity Urine > 1.045 (1.000-1.030); Urobilinogen Urine Negative (Negative); pH Urine 5.5 (4.5-7.5)
[2023-02-10] MEDS ORDERED: ACETAMINOPHEN 325 MG TAB PO PRN (20:15)
[2023-02-10] MEDS ORDERED: ONDANSETRON INJ 2 MG/ML 2 ML VIAL IV PRN (20:15)
[2023-02-10] MEDS ORDERED: PHARMACIST DISCHARGE MED REC CONSULT PRN (22:07)
--- NOTE | 2023-02-10 23:26 | Ultrasound Report ---
ULTRASOUND OF THE CAROTID ARTERIES CLINICAL HISTORY: Strokelike symptoms. Dizziness. COMPARISON STUDY: No priors. TECHNIQUE: Real-time, grayscale, and color Doppler sonography of the carotid arteries is performed. I mages are reviewed in the transverse and longitudinal planes. FINDINGS: The carotid arteries are patent bilaterally and demonstrate antegrade flow. There is no significant a therosclerotic plaque identified. Normal doppler arterial waveforms are seen throughout. Velocity sandie surements are listed below. Common carotid peak systolic velocity (cm/sec): RIGHT: 61 LEFT: 80 ICA proximal peak systolic velocity (cm/sec): RIGHT: 55 LEFT: 46 ICA mid peak systolic velocity (cm/sec): RIGHT: 62 LEFT: 52 ICA distal peak systolic velocity (cm/sec): RIGHT: 58 LEFT: 62 ICA/CC peak systolic ratio: RIGHT: 1.0 LEFT: 0.8 Antegrade flow was shown in the vertebral arteries. The external carotid arteries are patent. IMPRESSION: 1. There is no sonographic evidence of hemodynamically significant stenosis in the right or left nielsen tid arterial system. 2. Antegrade flow is shown in the vertebral arteries. ACT 112: Negative or not required by law. Electronically signed by: Rg Trejo M.D. 02/10/2023 11:24 PM
[2023-02-11 07:02] LABS: Basophils # (auto) 0.03 K/uL (0-0.2); Basophils % (auto) 0.5 %; Eosinophils # (auto) 0.13 K/uL (0-0.50); Hematocrit (blood only) 39.2 % (42.0-52.0); Hemoglobin 13.7 g/dl (14.0-18.0); Immature Granulocytes # (auto) 0.02 K/uL (0.01-0.20); Immature Granulocytes % (auto) 0.3 %; Lymphocytes # (auto) 1.66 K/uL (1.2-3.4); Lymphocytes % (auto) 26.1 %; Mean Corpuscular Hgb Conc 34.9 g/dL (32.0-36.0); Mean Corpuscular Volume 91.6 fL (80.0-100.0); Mean Platelet Volume 11.7 fL (9.4-12.4); Monocytes # (auto) 0.59 K/uL (0.11-0.59); Monocytes % (auto) 9.3 %; Neutrophils # (auto) 3.92 K/uL (1.40-6.50); Neutrophils % (auto) 61.8 %; Platelet Count 108 K/uL (130-400); RDW Coefficient of Variation 12.9 % (11.5-14.5); RDW Standard Deviation 42.5 fL (36.4-46.3); Red Blood Count 4.28 M/uL (4.70-6.10); White Blood Count 6.35 K/ul (4.8-10.8)
[2023-02-11 07:07] LABS: BUN Creatinine Ratio 21.4 (10-20); Calcium 8.4 mg/dl (8.6-10.3); Chol HDL Ratio 3.6 (0-5); Creatinine Clr Calc Pharmacy 126.3 ml/min; Est GFR (Non-African American) 93.2 ml/min; Potassium 4.2 mmol/L (3.5-5.1)
[2023-02-11 07:17] LABS: Troponin I High Sensitivity 17.3 pg/ml (0-20)
[2023-02-11 07:27] LABS: INR 2.3 (0.9-1.1); Prothrombin Time 23.4 Seconds (9.0-12.0)
--- NOTE | 2023-02-11 07:35 | Electrocardiogram Report ---
Test Reason : Blood Pressure : / mmHG Vent. Rate : 088 BPM Atrial Rate : 090 BPM P-R Int : 000 ms QRS Dur : 104 ms QT Int : 398 ms P-R-T Axes : 000 014 004 degrees QTc Int : 481 ms Atrial fibrillation Prolonged QT Abnormal ECG When compared with ECG of 23-DEC-2016 08:41, Atrial fibrillation has replaced Sinus rhythm Confirmed by Mian Lopez ([id number]) on 02/11/2023 7:34:58 AM Referred By: REFERRED SELF Confirmed By:Kaz Lopez
--- NOTE | 2023-02-11 08:58 | XRay Report ---
BONY ORBITS 3 VIEWS CLINICAL HISTORY: MRI clearance. FINDINGS: 3 views of the bony orbits are obtained. There is no radiodense/metallic foreign body seen in the region of the bony orbits. The bony orbits are intact as imaged. The visualized paranasal sinu ses and the mastoid air cells appear clear. The imaged calvarium appears intact. IMPRESSION: There is no radiodense/metallic foreign body seen in the region of the bony orbits. ACT 112: Negative or not required by law. Electronically signed by: Rg Trejo M.D. 02/11/2023 8:56 AM
[2023-02-11] MEDS ORDERED: predniSONE 5 MG TAB PO SCH (09:00)
[2023-02-11] MEDS ORDERED: allopurinoL 300 MG TAB PO SCH (09:00)
[2023-02-11] MEDS ORDERED: LOSARTAN POTASSIUM 50 MG TAB PO SCH (09:00)
[2023-02-11] MEDS ORDERED: ATORVASTATIN 40 MG TAB PO SCH (09:00)
[2023-02-11] MEDS ORDERED: TAMSULOSIN HCL 0.4 MG CAP PO SCH (09:00)
[2023-02-11] MEDS ORDERED: ASPIRIN 81 MG ECTAB PO SCH (09:00)
[2023-02-11] MEDS ORDERED: AMIODARONE 200 MG TAB PO SCH (09:00)
[2023-02-11 09:40] LABS: Estimated Average Glucose 123 mg/dl; Hemoglobin A1C 5.9 % (4.5-5.6)
--- NOTE | 2023-02-11 09:42 | XCELERA ---
[id number]
--- NOTE | 2023-02-11 09:43 | Magnetic Resonance Report ---
MRI OF THE BRAIN WITHOUT IV CONTRAST CLINICAL HISTORY: Dizziness. COMPARISON STUDY: CT of the brain dated 02/10/2023. TECHNIQUE: MRI of the brain was performed utilizing various T1 and T2-weighted sequences in the axial , sagittal, and coronal planes. IV contrast was not administered for this examination. FINDINGS: Brain parenchyma: Encephalomalacia in the anterior right temporal lobe is similar to the recent CT sc an. There age related involutional change noting mild microangiopathic disease. There is no hemorrhag e or mass effect. There is no restricted diffusion to suggest acute ischemia. Gonzalez-white matter diffe rentiation is preserved. No extra-axial fluid collection is seen. The cerebellar tonsils are normal i n configuration. Ventricles, sulci, and cisterns: Normal in configuration. Pituitary and sella: Unremarkable. Intracranial vasculature: Normal flow voids are maintained at the skull base. Orbits: The bony orbits are grossly intact. Orbital contents are normal in appearance. Sinuses and mastoids: There is mild mucosal thickening in the right maxillary antrum. The remaining p aranasal sinuses and the mastoid air cells are clear. Calvarium: Unremarkable. Cervical cord: Partially visualized cervical spinal cord is normal in morphology and signal intensity . IMPRESSION: 1. No acute intracranial abnormality. 2. 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 Cl inical correlation will be required. ACT 112: Negative or not required by law. Electronically signed by: Rg Trejo M.D. 02/11/2023 9:40 AM
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
[2023-02-11] MEDS ORDERED: STROKE PATIENT DISCHARGE STA (15:54)
[2023-02-11] MEDS ORDERED: WARFARIN SOD 5 MG TAB PO SCH (16:00)
--- NOTE | 2023-02-11 19:33 | Billing Data ---
Date of Service February 11, 2023 Coding Level of Care Code 37182 IN/OBS DISCH 30 MIN/LESS
== END 2023-02-11 16:30 | disposition home or self-care (01) ==
LOC: EDINP 15:25 → ED 15:25 → SUATTDRO 20:17 → 2N 22:46